=== PATIENT | female | born 1995 | race Caucasian/White ===

== ENCOUNTER 2018-07-31 13:32 | Emergency (ER) | payer OTHER ==
[~2018-07-31] VITALS: Ht 154.9 cm; Wt 59.0 kg
[2018-07-31] MEDS ORDERED: NORCO 5-325 TA1 EAC1 PO (13:56)
[2018-07-31 14:05] VITALS: BP 140/74
== END 2018-07-31 14:05 | disposition home or self-care (01) ==
LOC: M.ERS 13:32
DX: K01.1 Impacted teeth (principal)

== ENCOUNTER 2018-12-03 15:51 | Emergency (ER) | payer OTHER, MEDICAID ==
[~2018-12-03] VITALS: Ht 154.9 cm; Wt 59.0 kg
[~2018-12-03 15:51] MED LIST: NORCO 5-325 TA1 EAC1 PO
[2018-12-03 16:02] LABS: URINE BILIRUBIN NEGATIVE (Negative); URINE BLOOD TRACE (Negative); URINE CLARITY CLEAR; URINE COLOR YELLOW; URINE GLUCOSE-RANDOM NEGATIVE (Negative); URINE KETONES NEGATIVE (Negative); URINE LEUKOCYTES-REFLEX NEGATIVE (Negative); URINE NITRITE-REFLEX NEGATIVE (Negative); URINE PROTEIN NEGATIVE (Negative); URINE UROBILINOGEN 0.2 E.U./dl (0.2-1.0)
[2018-12-03] MEDS ORDERED: FLAGYL500 M1 PO (16:14)
[2018-12-03 16:35] VITALS: BP 139/88
== END 2018-12-03 16:38 | disposition home or self-care (01) ==
LOC: M.ERS 15:51
PROVIDERS: Nurse Practitioner Family
DX: N76.0 Acute vaginitis (principal); B96.89 Other specified bacterial agents as the cause of diseases classified elsewhere; Z98.890 Other specified postprocedural states

== ENCOUNTER 2019-02-06 05:45 | Emergency (ER) | payer OTHER, MEDICAID ==
[~2019-02-06] VITALS: Ht 154.9 cm; Wt 57.6 kg
[~2019-02-06 05:45] MED LIST changes: +FLAGYL500 M1 PO
[2019-02-06 06:13] LABS: URINE BILIRUBIN NEGATIVE (Negative); URINE BLOOD 3+ (Negative); URINE CLARITY CLEAR; URINE COLOR YELLOW; URINE GLUCOSE-RANDOM NEGATIVE (Negative); URINE KETONES TRACE (Negative); URINE LEUKOCYTES-REFLEX NEGATIVE (Negative); URINE NITRITE-REFLEX NEGATIVE (Negative); URINE PROTEIN NEGATIVE (Negative); URINE SPECIFIC GRAVITY >= 1.030 (1.005-1.030); URINE UROBILINOGEN 0.2 E.U./dl (0.2-1.0)
[2019-02-06 06:35] LABS: SQUAMOUS >10 Many /LPF (0-3)
[2019-02-06 06:36] LABS: CASTS None Seen /LPF (None Seen); CRYSTALS None Seen /LPF (None Seen); MUCUS >6 Heavy strn/LPF (None Seen); URINE RBC 3-10 Few /HPF (0-2); URINE WBC-REFLEX None Seen /HPF (0-5)
[2019-02-06] MEDS ORDERED: BACTRIM DS TAB1 EACH PO (06:42)
[2019-02-06] MEDS ORDERED: DIFLUCAN200 MG PO (06:42)
[2019-02-06] MEDS ORDERED: PHENERGAN 25 MG25 M1 PO (06:42)
[2019-02-06 06:58] VITALS: BP 108/78
== END 2019-02-06 06:58 | disposition home or self-care (01) ==
LOC: M.ERS 05:45
PROVIDERS: Emergency Medicine
DX: N39.0 Urinary tract infection, site not specified (principal); Z98.890 Other specified postprocedural states

== ENCOUNTER 2019-02-17 15:48 | Emergency (ER) | payer OTHER, MEDICAID ==
[~2019-02-17] VITALS: Ht 154.9 cm; Wt 59.0 kg
[~2019-02-17 15:48] MED LIST changes: +BACTRIM DS TAB1 EACH PO; +DIFLUCAN200 MG PO; +PHENERGAN 25 MG25 M1 PO
[2019-02-17 16:24] LABS: URINE BILIRUBIN NEGATIVE (Negative); URINE BLOOD 2+ (Negative); URINE CLARITY CLEAR; URINE COLOR YELLOW; URINE GLUCOSE-RANDOM NEGATIVE (Negative); URINE KETONES NEGATIVE (Negative); URINE LEUKOCYTES-REFLEX NEGATIVE (Negative); URINE NITRITE-REFLEX NEGATIVE (Negative); URINE PROTEIN NEGATIVE (Negative); URINE SPECIFIC GRAVITY >= 1.030 (1.005-1.030); URINE UROBILINOGEN 0.2 E.U./dl (0.2-1.0)
[2019-02-17 16:29] LABS: BACTERIA-REFLEX 1-9 Few /HPF (None Seen); CASTS None Seen /LPF (None Seen); CRYSTALS None Seen /LPF (None Seen); MUCUS 0-3 Light strn/LPF (None Seen); SQUAMOUS 0-3 Few /LPF (0-3); URINE RBC 0-2 Rare /HPF (0-2); URINE WBC-REFLEX 0-5 Rare /HPF (0-5)
[2019-02-17] MEDS ORDERED: MEDROLDOSEPACK PO (17:15)
[2019-02-17] MEDS ORDERED: ROBAXIN 750 MG750 MG PO (17:15)
[2019-02-17] MEDS ORDERED: NAPROSYN500 MG PO (17:16)
[2019-02-17 17:20] VITALS: BP 132/76
== END 2019-02-17 17:20 | disposition home or self-care (01) ==
LOC: M.ERS 15:48
PROVIDERS: Physician Assistant
DX: M54.2 Cervicalgia (principal); F17.200 Nicotine dependence, unspecified, uncomplicated; Z98.890 Other specified postprocedural states

== ENCOUNTER 2019-02-26 10:42 | Emergency (ER) | payer OTHER ==
[~2019-02-26] VITALS: Ht 154.9 cm; Wt 59.0 kg
[~2019-02-26 10:42] MED LIST changes: +MEDROLDOSEPACK PO; +NAPROSYN500 MG PO; +ROBAXIN 750 MG750 MG PO
[2019-02-26] MEDS ORDERED: EXCEDRIN EXTRA STR PO (10:57)
[2019-02-26] MEDS ORDERED: NORCO 5-325 TA1 EAC1 PO (11:35)
[2019-02-26] MEDS ORDERED: NEURONTIN 300300 M1 PO (11:35)
[2019-02-26] MEDS ORDERED: PREDNISONE 10 M10 MG PO (11:35)
[2019-02-26] MEDS ORDERED: NAPROSYN500 MG PO (11:35)
[2019-02-26 11:55] VITALS: BP 133/82
== END 2019-02-26 11:56 | disposition home or self-care (01) ==
LOC: M.ERS 10:42
DX: M54.12 Radiculopathy, cervical region (principal); F17.210 Nicotine dependence, cigarettes, uncomplicated; Z98.890 Other specified postprocedural states

== ENCOUNTER 2019-08-08 16:12 | Emergency (ER) | payer OTHER ==
[~2019-08-08] VITALS: Ht 154.9 cm; Wt 61.2 kg
[~2019-08-08 16:12] MED LIST changes: +EXCEDRIN EXTRA STR PO; +NEURONTIN 300300 M1 PO; +PREDNISONE 10 M10 MG PO
[2019-08-08 17:45] VITALS: BP 128/93
[2019-08-09] MEDS ORDERED: PREDNISONE 5 MG5 MG PO (02:23)
[2019-08-09] MEDS ORDERED: TESSALON PERLE100 MG PO (02:23)
== END 2019-08-08 17:49 | disposition left against medical advice (07) ==
LOC: M.ERS 16:12
DX: Z53.21 Procedure and treatment not carried out due to patient leaving prior to being seen by health care provider (principal)

== ENCOUNTER 2019-08-09 01:27 | Emergency (ER) | payer OTHER ==
[~2019-08-09] VITALS: Ht 154.9 cm; Wt 61.2 kg
[2019-08-09 02:16] LABS: INFLUENZA A ANTIGEN Negative (Negative); INFLUENZA B ANTIGEN Negative (Negative)
[2019-08-09] MEDS ORDERED: PREDNISONE 5 MG5 MG PO (02:23)
[2019-08-09] MEDS ORDERED: TESSALON PERLE100 MG PO (02:23)
[2019-08-09 02:39] VITALS: BP 128/86
== END 2019-08-09 02:40 | disposition home or self-care (01) ==
LOC: M.ERS 01:27
PROVIDERS: Emergency Medicine
DX: J06.9 Acute upper respiratory infection, unspecified (principal); Z98.890 Other specified postprocedural states